=== PATIENT | female | born 1985 | race African-American/Black ===

== ENCOUNTER 2016-05-15 01:20 | Emergency (ER) | payer OTHER ==
[2016-05-15 01:40] VITALS: BP 132/62; PULSE 107; TEMP 100.2; BMI 58.3
[2016-05-15] MEDS ORDERED: SODIUM CHLORIDE 0.9% 500 ML INFUS.BAG IV ONE (03:09)
[2016-05-15] MEDS ORDERED: OXYCODONE/APAP 5/325MG COMBO TABLET PO ONE (03:09)
[2016-05-15] MEDS ORDERED: IBUPROFEN 600 MG TABLET (FP) PO ONE ×2 (03:09→03:44)
--- NOTE | 2016-05-15 03:16 | PDOC ---
History of Present Illness - General History Source: Patient Exam Limitations: No Limitations - History of Present Illness Initial Comments: 05/15/16 03:28 The patient is a 31-year-old female with a significant past medical history of asthma, migraines, renal stones, and ovarian cysts, and presents to the emergency department with chest pain, shortness of breath, and fever since this morning. The patient states that her whole body hurts. She reports associated productive cough with green sputum. She reports associated right ear pain and slight pain swallowing. She states that she last took Tylenol a few hours ago, with no relief. The patient denies palpitations, headache and dizziness. The patient denies chills, nausea, vomit, diarrhea and constipation. The patient denies dysuria, frequency, urgency and hematuria. Allergies: acetaminophen, oxycodone, bee venom, cherries Social History: Denies toxic habits PCP: Dr. Mark Teresa <Soni Prado - Last Filed: 05/15/16 03:27> <Suri Hutchinson - Last Filed: 05/15/16 06:05> - General Chief Complaint: Respiratory Stated Complaint: SHORTNESS OF BREATH/FEVER Time Seen by Provider: 05/15/16 02:24 Past History <Soni Prado - Last Filed: 05/15/16 03:27> - Past Medical History Asthma: Yes Kidney Stones: Yes Suicide Attempt (Hx): No - Surgical History Abdominal Surgery: Yes (TUBAL LIGATION) - Reproductive History Tubal Ligation: Yes - Immunization History Td Vaccination: Yes TDAP Vaccination: Yes Immunization Up to Date: No - Psycho/Social/Smoking Cessation Hx Anxiety: No Suicidal Ideation: No Smoking Status: No Smoking History: Never smoked Have you smoked in the past 12 months: No Number of Cigarettes Smoked Daily: 10 If you are a former smoker, when did you quit?: 2-3 month ago 'Breaking Loose' booklet given: 08/18/12 Hx Alcohol Use: Yes (socially) Drug/Substance Use Hx: No Substance Use Type: None <Suri Hutchinson - Last Filed: 05/15/16 06:05> - Past Medical History Allergies/Adverse Reactions: Allergies Allergy/AdvReac Type Severity Reaction Status Date / Time venom-honey bee Allergy Severe Difficulty Verified 10/30/15 21:02 [bee venom (honey bee)] Breathing acetaminophen [From Percocet] Allergy Mild Itching Verified 10/30/15 21:02 oxycodone HCl [From Percocet] Allergy Mild Itching Verified 10/30/15 21:02 cherries Allergy Mild Hives Uncoded 10/30/15 21:02 Home Medications: Ambulatory Orders Acetaminophen/Caffeine/Butalb [Fioricet -] 1 tab PO Q4H 09/29/15 Albuterol 0.083% Nebulizer Cammie [Ventolin 0.083% Nebulizer Soln -] 1 neb NEB Q4H 09/29/15 Cholecalciferol (Vitamin D3) [Vitamin D3] 50,000 unit PO ASDIR 09/29/15 Citalopram Hydrobromide [Citalopram HBr] 40 mg PO DAILY 09/29/15 Cyclobenzaprine HCl [Flexeril -] 10 mg PO TID 09/29/15 Fluticasone Prop 0.05% Nasal [Flonase -] 1 - 2 spray NS DAILY 09/29/15 Fluticasone Propionate [Flovent Diskus] 250 mcg IH BID 09/29/15 Guaifenesin/Codeine Phosphate [Guaiatussin AC Liquid] 10 ml PO Q4H 09/29/15 Ibuprofen [Motrin -] 600 mg PO TID 09/29/15 Sulfamethoxazole/Trimethoprim [Bactrim DS -] 1 tab PO BID #4 tablet 10/25/15 Tamsulosin HCl [Flomax -] 0.4 mg PO DAILY@0830 #7 cap.er.24h 10/25/15 Docusate Sodium [Colace -] 100 mg PO DAILY #7 capsule 10/31/15 Glycerin [Suppository] 1 each RC DAILY PRN #2 supp.rect 10/31/15 Review of Systems - Review of Systems Able to Perform ROS?: Yes Comments:: 05/15/16 03:28 CONSTITUTIONAL: Present: (+) fever Absent: chills, diaphoresis, generalized weakness, malaise, loss of appetite HEENT: Present: (+) throat pain, (+) right ear pain Absent: rhinorrhea, nasal congestion, throat swelling, difficulty swallowing, mouth swelling, eye pain, visual changes CARDIOVASCULAR: Present: (+) chest pain Absent: syncope, palpitations, irregular heart rate, lightheadedness, peripheral edema RESPIRATORY: Present: (+) cough, (+) shortness of breath Absent: dyspnea with exertion, orthopnea, wheezing, stridor, hemoptysis GASTROINTESTINAL: Absent: abdominal pain, abdominal distension, nausea, vomiting, diarrhea, constipation, melena, hematochezia GENITOURINARY: Absent: dysuria, frequency, urgency, hesitancy, hematuria, flank pain, genital pain MUSCULOSKELETAL: Absent: myalgia, arthralgia, joint swelling SKIN: Absent: rash, itching, pallor HEMATOLOGIC/IMMUNOLOGIC: Absent: easy bleeding, easy bruising, lymphadenopathy, frequent infections ENDOCRINE: Absent: unexplained weight gain, unexplained weight loss, heat intolerance, cold intolerance NEUROLOGIC: Absent: headache, focal weakness or paresthesias, dizziness, unsteady gait, seizure, mental status changes, bladder or bowel incontinence PSYCHIATRIC: Absent: anxiety, depression, suicidal or homicidal ideation, hallucinations. <JohanSoni - Last Filed: 05/15/16 03:27> *Physical Exam - Vital Signs Last Vital Signs Temp Pulse Resp BP Pulse Ox 100.2 F H 107 H 20 132/62 99 05/15/16 01:27 05/15/16 01:27 05/15/16 01:27 05/15/16 01:27 05/15/16 01:27 - Physical Exam Comments: 05/15/16 03:28 GENERAL: Well developed, well nourished. Awake and alert. No acute distress. HEENT: (+) Tonsils are erythematous. Normocephalic, atraumatic. PERRLA, EOMI. No conjunctival pallor. Sclera are non-icteric. Moist mucous membranes. Oropharynx is clear. NECK: Supple. Full ROM. No JVD. Carotid pulses 2+ and symmetric, without bruits. No thyromegaly. No lymphadenopathy. CARDIOVASCULAR: Regular rate and rhythm. No murmurs, rubs, or gallops. Distal pulses are 2+ and symmetric. PULMONARY: No evidence of respiratory distress. Lungs clear to auscultation bilaterally. No wheezing, rales or rhonchi. ABDOMINAL: Soft. Non-tender. Non-distended. No rebound or guarding. No organomegaly. Normoactive bowel sounds. MUSCULOSKELETAL Normal range of motion at all joints. No bony deformities or tenderness. No CVA tenderness. EXTREMITIES: No cyanosis. No clubbing. No edema. No calf tenderness. SKIN: Warm and dry. Normal capillary refill. No rashes. No jaundice. NEUROLOGICAL: Alert, awake, appropriate. Cranial nerves 2-12 intact. No deficits to light touch and temperature in face, upper extremities and lower extremities. No motor deficits in the in face, upper extremities and lower extremities. Normoreflexic in the upper and lower extremities. Normal speech. Toes are down- going bilaterally. Gait is normal without ataxia. PSYCHIATRIC: Cooperative. Good eye contact. Appropriate mood and affect. <Soni Prado - Last Filed: 05/15/16 03:27> - Vital Signs Last Vital Signs Temp Pulse Resp BP Pulse Ox 100.2 F H 107 H 20 132/62 99 05/15/16 01:27 05/15/16 01:27 05/15/16 01:27 05/15/16 01:27 05/15/16 01:27 <Suri Hutchinson - Last Filed: 05/15/16 06:05> Medical Decision Making - Medical Decision Making 05/15/16 03:16 Pt comes with fever and chills and likely flu. She is complaining of body pains. SHe wants hydration. She wants pain meds. She states that she last took antipyretics at 9PM. 05/15/16 03:48 CXR is normal. rapid strep and flu culture are pending. Pt is getting hydrated in the ER and she will get percocet and motrin here for her fever and her body aches. 05/15/16 04:14 rapid strep and flu culture are negative. She will be discharged after her IV hydration 05/15/16 05:17 Pt has no fever in the ER. She will be discharged home as viral illness, NOS. Follow with PMD. <Suri Hutchinson - Last Filed: 05/15/16 06:05> *DC/Admit/Observation/Transfer - Attestations Scribe Attestion: 05/15/16 03:29 Documentation prepared by Soni Prado, acting as medical anthropology director for Suri Hutchinson MD. <Soni Prado - Last Filed: 05/15/16 03:27> - Discharge Dispostion Admit: No <Suri Hutchinson - Last Filed: 05/15/16 06:05> Diagnosis at time of Disposition: Viral illness - Discharge Dispostion Disposition: HOME Condition at time of disposition: Stable - Referrals Referrals: Mark Teresa MD [Primary Care Provider] - - Patient Instructions Printed Discharge Instructions: Common Cold, DI for Viral Syndrome
[2016-05-15] MEDS ORDERED: OXYCODONE/APAP 5/325MG COMBO TABLET ONE (03:44)
[2016-05-15] MEDS ORDERED: ACETAMINOPHEN/CAFFEINE/BUTALBITAL 1 TAB PO ONE (05:39)
[2016-05-15] MEDS ORDERED: ACETAMINOPHEN/CAFFEINE/BUTALBITAL 1 TAB ONE (05:44)
== END 2016-05-15 06:09 | disposition home or self-care (01) ==
LOC: JER 01:20
DX: J00 Acute nasopharyngitis [common cold] (principal); B97.89 Other viral agents as the cause of diseases classified elsewhere
CPT/HCPCS: 71020-TC; 87070; 87430; 87804; 99282-25

== ENCOUNTER 2016-11-14 11:01 | Emergency (ER) | payer OTHER ==
[2016-11-14 11:07] VITALS: BP 131/78; PULSE 81; TEMP 98; BMI 27.3
--- NOTE | 2016-11-14 12:57 | PDOC ---
*Physical Exam - Vital Signs Last Vital Signs Temp Pulse Resp BP Pulse Ox 98 F 81 18 131/78 100 11/14/16 11:05 11/14/16 11:05 11/14/16 11:05 11/14/16 11:05 11/14/16 11:05
--- NOTE | 2016-11-14 13:04 | PDOC ---
History of Present Illness - General Chief Complaint: Eye Problem Stated Complaint: EYE PROBLEM Time Seen by Provider: 11/14/16 12:32 History Source: Patient Exam Limitations: No Limitations - History of Present Illness Initial Comments: 11/14/16 13:05 Chief complaint: Left eye discomfort with crusting this morning History of present illness: Patient is a 31-year-old female with a history of asthma, depression, and renal calculi here today complaining of left eye discomfort with crusting noticed this morning with redness. Patient denies any injury to her left eye. Patient reports that area is slightly itchy. Patient denies any change in her vision. Patient denies any nasal congestion or any other symptoms presently. Timing/Duration: getting worse (LEFT EYE) Severity: mild Associated Symptoms: reports: denies symptoms Past History - Past Medical History Allergies/Adverse Reactions: Allergies Allergy/AdvReac Type Severity Reaction Status Date / Time venom-honey bee Allergy Severe Difficulty Verified 11/14/16 11:07 [bee venom (honey bee)] Breathing acetaminophen [From Percocet] Allergy Mild Itching Verified 11/14/16 11:07 oxycodone HCl [From Percocet] Allergy Mild Itching Verified 11/14/16 11:07 cherries Allergy Mild Hives Uncoded 11/14/16 11:07 Home Medications: Ambulatory Orders Tobramycin 0.3% Ophth Soln [Tobrex Ophthalmic Solution -] 1 drop OS Q6HPO #1 drops 11/14/16 Asthma: Yes Kidney Stones: Yes Psychiatric Problems: Yes (DEPRESSION) Suicide Attempt (Hx): No Other medical history: MIGRAINES, - Surgical History Abdominal Surgery: Yes (TUBAL LIGATION) - Reproductive History Tubal Ligation: Yes - Immunization History Td Vaccination: Yes TDAP Vaccination: Yes Immunization Up to Date: No - Psycho/Social/Smoking Cessation Hx Anxiety: No Suicidal Ideation: No Smoking Status: No Smoking History: Never smoked Have you smoked in the past 12 months: No Number of Cigarettes Smoked Daily: 10 If you are a former smoker, when did you quit?: 2-3 month ago Information on smoking cessation initiated: No 'Breaking Loose' booklet given: 08/18/12 Hx Alcohol Use: Yes (socially) Drug/Substance Use Hx: No Substance Use Type: None Review of Systems - Review of Systems Able to Perform ROS?: Yes Constitutional: No: Symptoms Reported HEENTM: Yes: Other (LEFT EYE CRUSTING, WITH REDNESS ) Respiratory: No: Symptoms reported Cardiac (ROS): No: Symptoms Reported ABD/GI: No: Symptoms Reported : No: Symptoms Reported Musculoskeletal: No: Symptoms Reported Integumentary: No: Symptoms Reported Neurological: No: Symptoms reported *Physical Exam - Vital Signs Last Vital Signs Temp Pulse Resp BP Pulse Ox 98 F 81 18 131/78 100 11/14/16 11:05 11/14/16 11:05 11/14/16 11:05 11/14/16 11:05 11/14/16 11:05 - Physical Exam General Appearance: Yes: Appropriately Dressed HEENT: positive: EOMI, BRIAN, TMs Normal, Other (LEFT CONJUNCTIVA ERYTHEMA). negative: Pharyngeal Erythema, Tonsillar Exudate, Tonsillar Erythema, Nasal Congestion, Rhinorrhea Neck: negative: Lymphadenopathy (R), Lymphadenopathy (L) Respiratory/Chest: positive: Lungs Clear, Normal Breath Sounds. negative: Chest Tender, Respiratory Distress Cardiovascular: positive: Regular Rhythm, Regular Rate, S1, S2 Integumentary: positive: Normal Color Neurologic: positive: Alert, Normal Response, Responsive Medical Decision Making - Medical Decision Making 11/14/16 13:06 Patient is a 31-year-old female with a history of asthma, depression, and renal calculi here today complaining of left eye discomfort with crusting noticed this morning with redness. Patient denies any injury to her left eye. Patient reports that area is slightly itchy. Patient denies any change in her vision. Patient denies any nasal congestion or any other symptoms presently. left eye conjunctivitis PLAN; TobraMycin 0.3% 1 drop every 6 hours and left eye for 5 days Follow Up with primary care provider within the next few days *DC/Admit/Observation/Transfer Diagnosis at time of Disposition: Conjunctivitis Qualifiers: Conjunctivitis type: acute Acute conjunctivitis type: unspecified Laterality: left Qualified Code(s): H10.32 - Unspecified acute conjunctivitis, left eye - Prescriptions Prescriptions: Tobramycin 0.3% Ophth Soln [Tobrex Ophthalmic Solution -] 1 drop OS Q6HPO #1 drops - Referrals Referrals: STAFF,NOT ON [Primary Care Provider] - - Patient Instructions Additional Instructions: Avoid rubbing your eye if you must wash her hands immediately Follow-up with your primary care provider within the next few days Return to emergency room if symptoms worsen or new symptoms develop Patient voiced understanding of discharge instructions and all questions were answered
== END 2016-11-14 13:34 | disposition home or self-care (01) ==
LOC: JERFT 11:01
DX: H10.32 Unspecified acute conjunctivitis, left eye (principal); F41.9 Anxiety disorder, unspecified; J45.909 Unspecified asthma, uncomplicated; Z87.442 Personal history of urinary calculi
CPT/HCPCS: 99281-25